=== PATIENT | female | born 1985 | race African-American/Black ===

== ENCOUNTER 2021-04-16 15:34 | Outpatient (CLI) | payer BC | END 2021-04-16 15:35 | disposition home or self-care (01) | LOC: NAV RAD 15:34 | PROVIDERS: ATTEND Family Medicine | DX: M17.0 Bilateral primary osteoarthritis of knee (principal) ==

== ENCOUNTER 2022-01-17 09:02 | Outpatient (CLI) | payer BC | END 2022-01-17 09:03 | disposition home or self-care (01) | LOC: NAV RAD 09:02 | PROVIDERS: ATTEND Nurse Practitioner Family | DX: M25.562 Pain in left knee (principal); M17.12 Unilateral primary osteoarthritis, left knee; Z98.890 Other specified postprocedural states ==